=== PATIENT | male | born 1965 | race Two or more races ===

== ENCOUNTER 2019-08-19 09:20 | Outpatient (CLI) | payer OTHER | END 2019-08-19 09:28 | disposition home or self-care (01) | LOC: SONOGRAMA 09:20 → MAMO-SONO 10:45 | DX: N40.3 Nodular prostate with lower urinary tract symptoms (principal); R97.20 Elevated prostate specific antigen [PSA] ==

== ENCOUNTER 2023-06-07 05:06 | Day surgery (SDC) | payer OTHER ==
[~2023-06-07] VITALS: Ht 177.8 cm; Wt 119.3 kg
[~2023-06-07 05:06] MED LIST: CHILDREN'S ASPI81 MG PO; COZAAR50 MG PO; FLUCONAZOLE100 MG PO; LIPITOR20 MG PO; PERCOCET 5-3251 EACH PO
[2023-06-07] MEDS ORDERED: POLY119PG PO (09:36)
[2023-06-07] MEDS ORDERED: PERCOCET 5-3251 EACH PO (09:36)
[2023-06-07] MEDS ORDERED: NEURONTIN300 MG PO (09:36)
== END 2023-06-07 12:20 | disposition home or self-care (01) ==
LOC: CIR.AMB 05:06
PROVIDERS: ATTEND Surgery
DX: K43.0 Incisional hernia with obstruction, without gangrene (principal); Z20.822 Contact with and (suspected) exposure to COVID-19; I10 Essential (primary) hypertension; E78.5 Hyperlipidemia, unspecified